=== PATIENT | male | born 1985 | race Caucasian/White ===

== ENCOUNTER 2017-12-29 18:54 | Emergency (ER) | payer SELFPAY ==
[~2017-12-29] VITALS: Ht 172.7 cm; Wt 68.0 kg
[2017-12-29 18:55] VITALS: BP 131/96
[2017-12-29] MEDS ORDERED: MULTIVITAMIN-12 10 ML, THIAMINE 100 MG, FOLIC ACID 1 MG, MAGNESIUM SULFATE 50% 2,000 MG... IV SCH ×5 (21:05)
[2017-12-29] MEDS ORDERED: LORazepam 2 MG/ML VIAL IVP ONE (21:05)
[2017-12-29] MEDS ORDERED: FOLIC ACID 5 MG/ML SYR ONE (21:17)
[2017-12-29] MEDS ORDERED: MULTIVITAMIN-12 10 ML VIAL IV ONE (21:17)
[2017-12-29] MEDS ORDERED: THIAMINE 200 MG/2 ML VIAL ONE (21:17)
[2017-12-29] MEDS ORDERED: MAG SULF 2000 MG/WATER PREMIX 50 ML IV ONE (21:32)
[2017-12-29 22:05] LABS: BASOPHILS % (AUTO) 0.3 % (0.0-2.0); HEMATOCRIT 44.3 % (36-52); LYMPHOCYTES # (AUTO) 2.2 K/uL (2.0-11.5); LYMPHOCYTES % (AUTO) 35.7 % (20.5-51.1); MEAN CORPUSCULAR HEMOGLOBIN 32 pg (27-31); MEAN CORPUSCULAR HGB CONC 34 g/dL (33-37); MEAN CORPUSCULAR VOLUME 94.5 fL (80-94); MONOCYTES # (AUTO) 0.4 K/uL (0.8-1.0); MONOCYTES % (AUTO) 6.9 % (1.7-9.3); NEUTROPHILS # (AUTO) 3.5 K/uL (1.8-7.7); NEUTROPHILS % (AUTO) 57.1 % (42.2-75.2); PLATELET COUNT (AUTO) 202 K/uL (140-450); RED BLOOD CELL COUNT(AUTO) 4.69 MIL/uL (4.20-6.10); WHITE BLOOD COUNT (AUTO) 6.1 K/uL (4.8-10.8)
[2017-12-29 22:36] LABS: ANION GAP 16.4 (8-16); CARBON DIOXIDE 26.9 mmol/L (21-32); CREATININE 0.9 mg/dL (0.7-1.3); POTASSIUM 3.3 mmol/L (3.5-5.1)
[2017-12-30 00:46] VITALS: BP 114/68
== END 2017-12-30 00:47 | disposition home or self-care (01) ==
LOC: MED 18:54
DX: F10.231 Alcohol dependence with withdrawal delirium (principal); F19.20 Other psychoactive substance dependence, uncomplicated; Y90.9 Presence of alcohol in blood, level not specified
CPT/HCPCS: 36415; 80048; 83735; 85025; 93005; 96365; 96375; 99285; A9153; J2060; J3411; J3475; J3490